=== PATIENT | female | born 1985 | race Caucasian/White ===

== ENCOUNTER → 2017-01-27 | Outpatient (CLI) | payer SELFPAY ==
--- NOTE | 2017-01-27 16:59 | Diagnostic Imaging Report ---
US NON OB PELVIS COMP/TRANSVAG TECHNIQUE: Transabdominal and transvaginal grayscale imaging of the pelvis was performed. INDICATION: Vaginal discharge. Patient is status post hysterectomy. COMPARISON: None available. FINDINGS: Uterus is surgically absent. No soft tissue mass within the surgical bed. The left ovary measures 2.4 x 2.7 x 2.2 cm and is physiologic in appearance with subcentimeter follicles present. Blood flow is present in left ovary by color Doppler imaging. The right ovary measures 3.0 x 2.5 x 1.8 cm. This is physiologic in appearance with normal blood flow present by color Doppler imaging. IMPRESSION: 1. Status post hysterectomy. No soft tissue mass or free pelvic fluid. 2. Physiologic appearance of the ovaries. Dictated by: Dictated on workstation # [id number]
== END ==
LOC: RAD 15:59
PROVIDERS: ATTEND Nurse Practitioner Family
DX: N89.8 Other specified noninflammatory disorders of vagina (principal); R10.2 Pelvic and perineal pain; Z90.710 Acquired absence of both cervix and uterus
CPT/HCPCS: 76830; 76856